=== PATIENT | male | born 1965 | race Caucasian/White ===

== ENCOUNTER 2017-02-20 13:56 | Emergency (ER) | payer MEDICAID ==
[2017-02-20] MEDS ORDERED: ONDANSETRON HCL 4 MG/2 ML VIAL ONE (14:25)
[2017-02-20] MEDS ORDERED: MAG-AL PLUS XS SUSP 30 ML UDC ONE (14:55)
[2017-02-20] MEDS ORDERED: LIDOCAINE VISCOUS 2% 15 ML UDC ONE (14:56)
[2017-02-20 15:07] LABS: EOSINOPHILS 0.1 % (0.0-6.0); WHITE BLOOD COUNT 15.8 X 10^3uL (3.9-10.7)
[2017-02-20 15:18] LABS: A/G RATIO 1.4; ALBUMIN 5.1 g/dL (3.5-5.0); ALKALINE PHOSPHATASE 49 U/L (38-126); ALT 62 U/L (21-72); AST 42 U/L (17-59); BLOOD UREA NITROGEN 18 mg/dL (9-20); CALCIUM 10.5 mg/dL (8.4-10.2); CHLORIDE 105 mmol/L (98-107); CREATININE 1.3 mg/dL (0.7-1.3); EST GLOMERULAR FILTRATION RATE > 60 mL/min; GLUCOSE 158 mg/dL (70-100); MAGNESIUM 1.8 mg/dL (1.6-2.3); POTASSIUM 3.9 mmol/L (3.5-5.1); SODIUM 144 mmol/L (137-145); TOTAL PROTEIN 8.8 g/dL (6.3-8.2)
--- NOTE | 2017-02-20 15:23 | RADIOLOGY REPORT ---
A limited single portable view of the chest, without prior films for comparison , demonstrates the heart, vessels and lungs to be unremarkable. No infiltrate, fluid or pneumothorax is seen. IMPRESSION: Unremarkable limited single portable view of the chest. MTDD
[2017-02-20 15:27] LABS: BASOPHILS 0.1 % (0.0-2.0); HEMATOCRIT 52.2 % (42.0-54.0); HEMOGLOBIN 18.9 g/dL (14.0-18.0); LYMPHOCYTES 10.6 % (20.0-40.0); LYMPHOCYTES# 1.7 X 10^3uL (0.8-3.8); MEAN CELL VOLUME 84.6 fL (80.0-100.0); MEAN CORPUS. HGB CONCENTRATION 36.2 g/dL (32.0-36.0); MEAN CORPUSCULAR HEMOGLOBIN 30.6 pg (29.0-35.0); MONOCYTES 5.6 % (2.0-10.0); MONOCYTES# 0.9 X 10^3uL (0.2-1.0); NEUTROPHILS 83.6 % (54.0-75.0); NEUTROPHILS# 13.2 X 10^3uL (2.6-6.7); PLATELET COUNT 170 X 10^3uL (130-440); RED BLOOD COUNT 6.17 X 10^6uL (4.20-6.10); RED CELL DISTRIBUTION WIDTH 14.4 % (11.5-14.5)
[2017-02-20 15:35] LABS: ETHYL ALCOHOL < 10 mg/dL (<10)
[2017-02-20] MEDS ORDERED: HALOPERIDOL 5 MG/ML VIAL ONE (16:52)
[2017-02-20] MEDS ORDERED: PANTOPRAZOLE 40 MG TABLET PO ONE (16:52)
[2017-02-20] MEDS ORDERED: LORazepam 1 MG TABLET ONE (18:07)
--- NOTE | 2017-02-20 20:04 | ER NURSING DOCUMENTATION ---
Nurse's Notes [facility] Name:Kalpesh Burr Age:51 yrs Sex:Male :1965 Arrival Date:02/20/2017 Time:13:56 Bed4 Private MD: Diagnosis:Abdominal Pain, Epigastric;Alcohol Abuse;Alcohol Gastritis, w/o Hemorrhage;Dehydration Presentation: 02/20 14:01 Acuity: TAM 3 lp 14:06 Presenting complaint: Patient states: I've got alcohol poisoning!!" Drank yesterday, rs large amt of vodka, states he is an alcoholic, c/o n/v and dry heaves. Also has a EMERY, dizziness. Has not taken any meds. Hx of detox and treatment program. Transition of care: Home. 14:06 Method Of Arrival: Private Vehicle rs 17:49 Notified ED Physician of Pt now states he started drinking 10 to 12 dys ago, and that rs he drank more each day, yesterday being the most. he drank until early in the morning. States he still feels "horrible". Nausea cont. Triage Assessment: 14:10 General: Appears distressed, uncomfortable, well developed, well nourished, well rs groomed, Behavior is agitated, cooperative, restless, moaning and groaning, tossing from side to side.. Smells of alcohol. Pain: Complains of pain in States entire abdomen hurts. "Froom vomiting and dry heaving." Pain currently is 9 out of 10 on a pain scale. Quality of pain is described as burning, aching. Neuro: No deficits noted. Level of Consciousness is awake, alert, Oriented to person, place, time, event. Cardiovascular: No deficits noted. Capillary refill. Respiratory: No deficits noted. Respiratory effort is even, unlabored, Respiratory pattern is regular, symmetrical, Breath sounds are clear Denies cough, shortness of breath. GI: Abdomen is flat, non- distended Dry heaves Bowel sounds present X 4 quads. Abd is soft and non tender. Derm: No deficits noted. Historical: - Allergies: No known drug Allergies; - Home Meds: 1. None - PMHx: ALCOHOLISM; Abdominal Pain, Epigastric (February 20, 2017); Alcohol Abuse (February 20, 2017); Alcohol Gastritis, w/o Hemorrhage (February 20, 2017); Dehydration (February 20, 2017); Vomiting - Dehydration (May 04, 2016); Alcohol (ETOH) Withdrawal(May 04, 2016); Pancreatitis, Acute (February 04, 2016); Vomiting - Dehydration (February 04, 2016); Hematemesis (February 04, 2016); Alcohol Abuse (February 04, 2016); - PSHx: ankle; - Tetanus: < 10 years. - Ebola Screening: : Patient negative for fever greater than or equal to 101.5 degrees Fahrenheit, and additional compatible Ebola Virus Disease symptoms. Patient denies exposure to infectious person. Patient denies travel to an Ebola-affected area in the 21 days before illness onset. No symptoms or risks identified at this time. . - Immunization history: Unable to Obtain. - Social history: Smoking status: Patient states was never smoker of tobacco. Patient uses alcohol on a daily basis. Screenin:36 Infectious Disease Risk None. Abuse screen: Denies threats or abuse. Nutritional rs screening: No deficits noted. Suicide Risk Assessment: Unable to obtain due to. Assessment: 14:36 See Triage Assessment done by same RN. rs 15:24 Reassessment: Patient states feeling better. Patient states symptoms have improved. rs Patient appears in no apparent distress at this time. pt has difficulty describing pain vs nausea. . Vital Signs: 14:04 BP 148 / 80; Pulse 90; Resp 28; Temp 98.5; Pulse Ox 95% on R/A; Weight 79.38 kg; Height rs 6 ft. 0 in. (182.88 cm); Pain 9/10; 14:14 BP 165 / 93; Pulse 82; Resp 24; Pulse Ox 94% on R/A; Pain 9/10; rs 14:30 BP 166 / 90; Pulse 79; Resp 24; Pulse Ox 100% on R/A; Pain 8/10; rs 14:45 BP 141 / 57; Pulse 56; Resp 20; Pulse Ox 100% ; Pain 7/10; rs 15:00 BP 150 / 67; Pulse 80; Resp 20; Pulse Ox 94% on R/A; Pain 6/10; rs 16:00 BP 159 / 79; Pulse 83; Resp 20; Pulse Ox 95% on R/A; Pain 4/10; rs 17:06 BP 141 / 75; Pulse 78; Resp 20; Pulse Ox 95% on R/A; Pain 5/10; rs 18:15 BP 152 / 74; Pulse 82; Resp 20; Pulse Ox 94% on R/A; Pain 5/10; rs 19:35 BP 165 / 95; Pulse 71; Resp 18; Pulse Ox 94% on R/A; Pain 1/10; rs 20:00 BP 141 / 72; Pulse 74; Resp 18; Pulse Ox 92% on R/A; Pain 0/10; rs 14:04 Body Mass Index 23.73 (79.38 kg, 182.88 cm) rs ED Course: 13:59 Patient arrived in ED. cj 14:01 Triage completed. lp 14:06 Sunita Yoon, RN is Primary Nurse. rs 14:15 Scott Bess MD is Attending Physician. tl1 14:15 Notified ED Physician of patient's arrival and chief complaint. Dr. Bess notified. Arm rs band placed on Bed in low position Call Light in Reach HOB Elevated Side rails up x1 Emesis basin given. Family accompanied patient. 14:20 Inserted peripheral IV: 20 gauge in left antecubital area and blood collected. Oxygen rs Oxygen administration via nasal cannula @ 2L/min. 14:37 Valuables Remains with patient. Pulse ox on. NIBP on. Door closed. Noise minimized. rs Visitors limited. Lights dimmed. Verbal reassurance given. Warm blanket given. Diet: Patient is NPO. 15:29 Resting quietly. rs 16:10 Discontinued IV intact, bleeding controlled, pressure dressing applied, No rs redness/swelling at site. 18:22 Appears to be sleeping. Sound asleep. Resp reg and non-labored. [place], warm and dry. rs Person that was here with him was not related. She states she is a friend, and left him $20 for a taxi and took his billfold for safe keeping. She requests that we call a taxi when he is ready to go home. 19:41 Awaiting transportation. rs Administered Medications: Completed: NS 0.9% 2000 ml IV at bolus once 14:25 Drug: NS 0.9% 2000 ml; Volume: 1000 ml; Route: IV; Rate: bolus; Site: left antecubital; rs Delivery: [place] [facility]; 15:53 Follow up: IV Status: Completed infusion; IV Intake: 2000ml rs 14:30 Drug: Zofran 8 mg; Route: IVP; Rate: 2 mg/min; Infused Over: 4 mins; Site: left rs antecubital; 15:23 Follow up: Response: Nausea unchanged rs 15:00 Drug: GI Cocktail w/o Donnatol 45 ml - (Maalox Suspension 30 ml, Lidocaine Liquid 2 % rs 15 ml); Route: PO; 15:54 Follow up: Response: Pain is decreased rs 15:00 Drug: Phenergan 12.5 mg; {Note: Added to remaining 100 ml of IVF.} Route: IVP; Rate: 1 rs mg/min; Infused Over: 12 mins; Site: left antecubital; 15:24 Follow up: Response: Nausea is decreased rs 16:45 CANCELLED (Physician Discretion): Pantoprazole 80 mg IVPB once rs 16:49 CANCELLED (Physician Discretion): Haldol 2.5 mg IVP once rs 16:50 Drug: haldol 5 mg im 5 mg; Route: IM; Site: right gluteus; rs 17:36 Follow up: Response: No adverse reaction; No change in condition rs 16:50 Drug: Pantoprazole 40 mg; Route: PO; rs 17:37 Follow up: Response: No adverse reaction; No change in condition rs 17:28 Drug: Phenergan 12.5 mg; Route: PO; rs 17:52 Follow up: Response: No adverse reaction; No change in condition rs 17:56 Drug: Ativan 2 mg; Route: PO; rs 18:27 Follow up: Response: No adverse reaction; Marked relief of symptoms rs Intake: 15:53 IV: 2000ml; Total: 2000ml. rs Outcome: 16:07 Discharge ordered by . tl1 16:10 Discharged to home via wheelchair. rs 16:10 Condition: improved 16:10 Discharge instructions given to patient, family, Instructed on discharge instructions, follow up and referral plans. medication usage, Demonstrated understanding of instructions, medications, Prescriptions given X 2. 16:38 Discharge Assessment: Patient awake and alert. Oriented to person, place and time. rs event, Patient verbalized understanding of disposition instructions. Patient has no functional deficits. Just prior to leaving the ER pt began having nausea again. MD aware. 16:38 IV D/Amauri 16:38 IV D/Amauri 20:01 Discharged to home ambulatory. rs 20:01 Condition: improved 20:01 Discharge instructions given to patient, Instructed on discharge instructions, follow up and referral plans. medication usage, Demonstrated understanding of instructions, medications, Prescriptions given X 2. 20:03 Patient left the ED. rs Signatures: Sunita Yoon RN RN Sravanthi Wayne RN RN lp Leigh, Tom, MD MD tl1 Radha Dunaway
--- NOTE | 2017-02-20 20:04 | ER PHYSICIAN DOCUMENTATION ---
Physician Documentation [facility] Name:Kalpesh Burr Age:51 yrs Sex:Male :1965 Arrival Date:02/20/2017 Time:13:56 Bed4 Private MD: Scott Lopez Disposition: 02/22 07:34 Chart complete. tl1 Disposition: 02/20/17 16:07 Discharged to Home/Self Care. Impression: Abdominal Pain, Epigastric, Alcohol Abuse, Alcohol Gastritis, w/o Hemorrhage, Dehydration. - Condition is Good. - Discharge Instructions: ABDOMINAL PAIN, Unkown Cause, (Male), DEHYDRATION (6y-Adult). - Prescriptions for Prilosec 20 mg Oral Capsule - take 1 capsule by ORAL route once daily; 10 capsule. Zofran 4 mg Oral Tablet - take 1-2 tablet by ORAL route every 4-6 hours As needed; 10 tablet. - Medical Reconciliation form form. - Follow up: Private Physician; When: 2 - 3 days; Reason: Recheck today's complaints, Continuance of care. - Problem is new. - Symptoms have improved. HPI: 02/20 14:00 This 51 yrs old Male presents to ER via Private Vehicle with complaints of tl1 ETOH Abuse. 14:00 He has a long h/o EtOH abuse, but has been sober for 9 months until about 10 days ago tl1 when he started drinking progressively more vodka. Last night was the worst; he drank a fifth of vodka and is now feeling terrible, with diffuse abdominal epigastric aching pain, nausea, repeated vomiting, h/a, malaise and fatigue. He denies tremulousness. No f/c/s. No melena, hematochezia or hematemesis.. Historical: - Allergies: No known drug Allergies; - Home Meds: 1. None - PMHx: ALCOHOLISM; Abdominal Pain, Epigastric (February 20, 2017); Alcohol Abuse (February 20, 2017); Alcohol Gastritis, w/o Hemorrhage (February 20, 2017); Dehydration (February 20, 2017); Vomiting - Dehydration (May 04, 2016); Alcohol (ETOH) Withdrawal(May 04, 2016); Pancreatitis, Acute (February 04, 2016); Vomiting - Dehydration (February 04, 2016); Hematemesis (February 04, 2016); Alcohol Abuse (February 04, 2016); - PSHx: ankle; - Tetanus: < 10 years. - Ebola Screening: : Patient negative for fever greater than or equal to 101.5 degrees Fahrenheit, and additional compatible Ebola Virus Disease symptoms. Patient denies exposure to infectious person. Patient denies travel to an Ebola-affected area in the 21 days before illness onset. No symptoms or risks identified at this time. . - Immunization history: Unable to Obtain. - Social history: Smoking status: Patient states was never smoker of tobacco. Patient uses alcohol on a daily basis. ROS: 14:00 Psych: Negative for auditory hallucinations, visual hallucinations, suicidal ideation. tl1 14:00 All other systems are negative. Exam: 14:00 Head/Face: Normocephalic, atraumatic. tl1 Eyes: Pupils equal round and reactive to light, extra-ocular motions intact. Lids and lashes normal. Conjunctiva and sclera are non-icteric and not injected. Cornea within normal limits. Periorbital areas with no swelling, redness, or edema. ENT: Nares patent. No nasal discharge, no septal abnormalities noted. Tympanic membranes are normal and external auditory canals are clear. Oropharynx with no redness, swelling, or masses, exudates, or evidence of obstruction, uvula midline. Mucous membranes moist. Cardiovascular: Regular rate and rhythm with a normal S1 and S2. No gallops, murmurs, or rubs. Normal PMI, no JVD. No pulse deficits. 14:00 Respiratory: Lungs have equal breath sounds bilaterally, clear to auscultation and tl1 percussion. No rales, rhonchi or wheezes noted. No increased work of breathing, no retractions or nasal flaring. 14:00 Constitutional: The patient appears alert, awake, well developed, well hydrated, well groomed, well nourished, anxious, in obvious distress, in obvious pain, smells of alcohol, restless, uncomfortable. 14:00 Abdomen/GI: Inspection: abdomen appears normal, Bowel sounds: normal, Palpation: soft, moderate abdominal tenderness, in the epigastric area, Liver: tenderness, that is mild. 14:00 : CVA tenderness, is absent. 14:00 Musculoskeletal/extremity: Exam is negative for acute changes. 14:00 Skin: Exam negative for acute changes. 14:00 Neuro: Exam negative for acute changes. 14:00 Psych: Behavior/mood is pleasant, cooperative, depressed, Affect is animated, Oriented to person, place, time, Patient has no thoughts/intents to harm self or others. Judgement / Insight is normal. Memory is normal. Delusions/hallucinations are not present. Vital Signs: 14:04 BP 148 / 80; Pulse 90; Resp 28; Temp 98.5; Pulse Ox 95% on R/A; Weight 79.38 kg; Height rs 6 ft. 0 in. (182.88 cm); Pain 9/10; 14:14 BP 165 / 93; Pulse 82; Resp 24; Pulse Ox 94% on R/A; Pain 9/10; rs 14:30 BP 166 / 90; Pulse 79; Resp 24; Pulse Ox 100% on R/A; Pain 8/10; rs 14:45 BP 141 / 57; Pulse 56; Resp 20; Pulse Ox 100% ; Pain 7/10; rs 15:00 BP 150 / 67; Pulse 80; Resp 20; Pulse Ox 94% on R/A; Pain 6/10; rs 16:00 BP 159 / 79; Pulse 83; Resp 20; Pulse Ox 95% on R/A; Pain 4/10; rs 17:06 BP 141 / 75; Pulse 78; Resp 20; Pulse Ox 95% on R/A; Pain 5/10; rs 18:15 BP 152 / 74; Pulse 82; Resp 20; Pulse Ox 94% on R/A; Pain 5/10; rs 19:35 BP 165 / 95; Pulse 71; Resp 18; Pulse Ox 94% on R/A; Pain 1/10; rs 20:00 BP 141 / 72; Pulse 74; Resp 18; Pulse Ox 92% on R/A; Pain 0/10; rs 14:04 Body Mass Index 23.73 (79.38 kg, 182.88 cm) rs MDM: 14:12 Patient medically screened. tl1 15:30 Differential diagnosis: drug withdrawal. alcohol withdrawal, alcoholic gastritis, tl1 hepatitis, biliary disease, PUD. Data reviewed: vital signs, nurses notes, old medical records, lab test result(s), CBC, electrolytes, hepatic panel, radiologic studies, and as a result, I will discharge patient. Test interpretation: by ED physician or midlevel provider: plain radiologic studies. Counseling: I had a detailed discussion with the patient and/or guardian regarding: the historical points, exam findings, and any diagnostic results supporting the discharge/admit diagnosis, lab results, radiology results, the need for outpatient follow up, with the patient's primary care provider, to return to the emergency department if symptoms worsen or persist or if there are any questions or concerns that arise at home. Response to treatment: the patient's symptoms have markedly improved after treatment, and as a result, I will discharge patient. ED course: He did have persistent nausea, and abdominal discomfort along with h/a and malaise, but did feel much better after IVNS, antiemetics, ativan, and was eager to go home. He does not seem to be having alcohol withdrawal now, though it is difficult to be certain. I encouraged him to avoid EtOH in the future and to get back with AA or some kind of support group and to f/u with his PCP, Radha Sifuentes.. 02/20 15:27 Order name: DDIMER; Complete Time: 16:05 SD 02/20 15:35 Interpretation: Abnormal: DDIMER 346. tl1 02/20 15:35 Order name: COMPREHENSIVE METABOLIC PANEL; Complete Time: 16:05 02/20 Interpretation: SODIUM 144; POTASSIUM 3.9; CHLORIDE 105; CARBON DIOXIDE 21; GLUCOSE tl1 158; BLOOD UREA NITROGEN 18; CREATININE 1.3; BILIRUBIN, TOTAL 2.0; EST GLOMERULAR FILTRATION RATE > 60; CALCIUM 10.5; ALBUMIN 5.1; BILIRUBIN, TOTAL 2.0; TOTAL PROTEIN 8.8. 02/20 15:35 Order name: MAGNESIUM; Complete Time: 16:05 SD 02/20 16:04 Interpretation: Normal: MAGNESIUM 1.8. tl1 02/20 15:35 Order name: BNP,NT-PRO; Complete Time: 16:05 SD 02/20 16:04 Interpretation: Normal: BNP,NT-PRO 64. tl02/20 15:35 Order name: ETHYL ALCOHOL; Complete Time: 16:05 SD 02/20 16:04 Interpretation: Normal: ETHYL ALCOHOL < 10. 02/20 15:40 Order name: CBC AUTO DIF, MDIF/RMOR IF IND; Complete Time: 16:05 SD 02/20 16:04 Interpretation: WHITE BLOOD COUNT 15.8; HEMOGLOBIN 18.9; HEMATOCRIT 52.2; PLATELET tl1 COUNT 170. 05/31 15:32 Order name: CHEST; SINGLE VIEW 60034; Complete Time: 15:37 EDMS 0602 07:35 Interpretation: NAD. See radiologist report. tl1 Dispensed Medications: Completed: NS 0.9% 2000 ml IV at bolus once 14:25 Drug: NS 0.9% 2000 ml; Volume: 1000 ml; Route: IV; Rate: bolus; Site: left antecubital; rs Delivery: [place] Tub[place]; 15:53 Follow up: IV Status: Completed infusion; IV Intake: 2000ml rs 14:30 Drug: Zofran 8 mg; Route: IVP; Rate: 2 mg/min; Infused Over: 4 mins; Site: left rs antecubital; 15:23 Follow up: Response: Nausea unchanged rs 15:00 Drug: GI Cocktail w/o Donnatol 45 ml - (Maalox Suspension 30 ml, Lidocaine Liquid 2 % rs 15 ml); Route: PO; 15:54 Follow up: Response: Pain is decreased rs 15:00 Drug: Phenergan 12.5 mg; {Note: Added to remaining 100 ml of IVF.} Route: IVP; Rate: 1 rs mg/min; Infused Over: 12 mins; Site: left antecubital; 15:24 Follow up: Response: Nausea is decreased rs 16:45 CANCELLED (Physician Discretion): Pantoprazole 80 mg IVPB once rs 16:49 CANCELLED (Physician Discretion): Haldol 2.5 mg IVP once rs 16:50 Drug: haldol 5 mg im 5 mg; Route: IM; Site: right gluteus; rs 17:36 Follow up: Response: No adverse reaction; No change in condition rs 16:50 Drug: Pantoprazole 40 mg; Route: PO; rs 17:37 Follow up: Response: No adverse reaction; No change in condition rs 17:28 Drug: Phenergan 12.5 mg; Route: PO; rs 17:52 Follow up: Response: No adverse reaction; No change in condition rs 17:56 Drug: Ativan 2 mg; Route: PO; rs 18:27 Follow up: Response: No adverse reaction; Marked relief of symptoms rs Signatures: Sunita Yoon RN RN rs Leigh, Tom, MD MD tl1
== END 2017-02-20 20:04 | disposition home or self-care (01) ==
LOC: ER 13:56
DX: K29.20 Alcoholic gastritis without bleeding (principal); F10.20 Alcohol dependence, uncomplicated; E86.0 Dehydration; R10.13 Epigastric pain; R11.2 Nausea with vomiting, unspecified; R51 Headache; R53.81 Other malaise
CPT/HCPCS: 71010; 80053; 80320; 83735; 83880; 85025; 85379; 96361; 96372; 96374; 96375; 99284; J1630; J2405; J2550; Q0169

== ENCOUNTER 2017-02-24 15:38 | Emergency (ER) | payer MEDICAID ==
[2017-02-24] MEDS ORDERED: DIPHENHYDRAMINE 50 MG/ML VIAL ONE (16:34)
[2017-02-24] MEDS ORDERED: HALOPERIDOL 5 MG/ML VIAL ONE (16:35)
[2017-02-24] MEDS ORDERED: LORazepam 2 MG/ML INJ ONE (16:36)
--- NOTE | 2017-02-24 18:33 | ER PHYSICIAN DOCUMENTATION ---
Physician Documentation [facility] Name:Kalpesh Burr Age:51 yrs Sex:Male :1965 Arrival Date:02/24/2017 Time:15:38 Bed5 Private MD: Scott Lopez Disposition: 02/25 22:28 Chart complete. tl1 Disposition: 02/24/17 16:44 Discharged to Home/Self Care. Impression: Nausea - Vomiting (not ), Abdominal Pain, Epigastric. - Condition is Good. - Discharge Instructions: ABDOMINAL PAIN, Unkown Cause, (Male), NAUSEA VOMITING 6yAdult - VOMITING (6y-Adult). - Prescriptions for Ativan 2 mg Oral - take 1 tablet by ORAL route every 8 hours As needed; 6 tablet. Haloperidol 2 mg Oral Tablet - take 1 tablet by ORAL route every 12 hours; 30 tablet. - Medical Reconciliation form form. - Follow up: [facility]; When: 2 - 3 days; Reason: Recheck today's complaints, Continuance of care. - Problem is new. - Symptoms have improved. HPI: 02/24 17:19 This 51 yrs old Male presents to ER via Walk In with complaints of Abdominal tl1 Pain. 17:20 He was seen here 5 days ago by me for abdominal pain that I thought was most consistent tl1 with alcoholic gastritis. He felt better afterhis ED treatment and was d/c'd to home. Since then he has been sober, but this similar pain persists, mostly in the epigastrium and similar to what he has had on several visits to this ED in the past. He is also anxious and nauseated... Historical: - Allergies: No known drug Allergies; - Home Meds: 1. None - PMHx: ALCOHOLISM; Abdominal Pain, Epigastric (February 20, 2017); - Tetanus: < 10 years. - Ebola Screening: : No symptoms or risks identified at this time. . - Immunization history: Flu Vaccine < 1 year. - Social history: Smoking status: Patient uses tobacco products, current some day smoker. ROS: 17:20 Constitutional: Positive for body aches, fatigue, malaise, poor PO intake, Negative for tl1 chills, fever, poor PO intake, weight loss. 17:20 Abdomen/GI: Positive for abdominal pain, nausea, constipation, Negative for 17:20 Psych: Positive for anxiety, Negative for auditory hallucinations, visual hallucinations, insomnia. 17:20 All other systems are negative. Exam: 17:20 Constitutional: This is a well developed, well nourished patient who is awake, alert, tl1 and in no acute distress. Head/Face: Normocephalic, atraumatic. Eyes: Pupils equal round and reactive to light, extra-ocular motions intact. Lids and lashes normal. Conjunctiva and sclera are non-icteric and not injected. Cornea within normal limits. Periorbital areas with no swelling, redness, or edema. ENT: Nares patent. No nasal discharge, no septal abnormalities noted. Tympanic membranes are normal and external auditory canals are clear. Oropharynx with no redness, swelling, or masses, exudates, or evidence of obstruction, uvula midline. Mucous membranes moist. Neck: Trachea midline, no thyromegaly or masses palpated, and no cervical lymphadenopathy. Supple, full range of motion without nuchal rigidity, or vertebral point tenderness. No Meningismus. Cardiovascular: Regular rate and rhythm with a normal S1 and S2. No gallops, murmurs, or rubs. Normal PMI, no JVD. No pulse deficits. 17:20 Respiratory: Lungs have equal breath sounds bilaterally, clear to auscultation and tl1 percussion. No rales, rhonchi or wheezes noted. No increased work of breathing, no retractions or nasal flaring. 17:20 Abdomen/GI: Inspection: abdomen appears normal, Palpation: soft, moderate abdominal tenderness, in the epigastric area. 17:20 Skin: Exam negative for 17:20 Neuro: Orientation: is normal, Mentation: is normal, Memory: is normal, Cranial nerves: is grossly normal based on the patient's age, Motor: is normal, Sensation: Gait: is steady. Vital Signs: 16:06 BP 137 / 98; Pulse 97; Resp 18; Temp 99.6; Pulse Ox 95% on R/A; Weight 70.31 kg; Height mk4 5 ft. 10 in. (177.80 cm); Pain 5/10; 17:55 Resp 16; Pulse Ox 94% on R/A; Pain 0/10; lc 16:06 Body Mass Index 22.24 (70.31 kg, 177.80 cm) mk4 MDM: 15:55 Patient medically screened. tl1 17:00 Data reviewed: vital signs, nurses notes, old medical records, and as a result, I will tl1 discharge patient. Counseling: I had a detailed discussion with the patient and/or guardian regarding: the historical points, exam findings, and any diagnostic results supporting the discharge/admit diagnosis, the need for outpatient follow up, to return to the emergency department if symptoms worsen or persist or if there are any questions or concerns that arise at home. Medication response: The patient's symptoms have improved. Dispensed Medications: 16:02 Drug: NS 0.9% (20 ml/kg) 1000 ml/hr; Volume: 1000 ml; Route: IV; Rate: bolus; Infused mk4 Over: 45 mins; Site: right antecubital; Delivery: [place] [facility]; 17:54 Follow up: IV Status: Completed infusion; IV Intake: 1000ml lc 16:37 Drug: Haldol 2.5 mg; Route: IVP; Rate: 2 bolus; Infused Over: 2 mins; Site: right mk4 forearm; 17:54 Follow up: Response: Anxiety decreased lc 16:37 Drug: Ativan 1 mg; Route: IVP; Rate: 1 bolus; Infused Over: 1 mins; Site: right mk4 antecubital; 17:54 Follow up: Response: Anxiety decreased lc 16:38 Drug: Benadryl 25 mg; Route: IVP; Rate: 25 bolus; Infused Over: 2 mins; Site: right mk4 antecubital; 17:55 Follow up: Response: No adverse reaction lc Signatures: Ashley Mullen 4 Scott Bess MD MD tl1 Alta Larson RN lc
--- NOTE | 2017-02-24 18:33 | ER NURSING DOCUMENTATION ---
Nurse's Notes [facility] Name:Kalpesh Burr Age:51 yrs Sex:Male :1965 Arrival Date:02/24/2017 Time:15:38 Bed5 Private MD: Diagnosis:Nausea - Vomiting (not );Abdominal Pain, Epigastric Presentation: 02/24 15:45 Presenting complaint: Patient states: Seen in ED for alcohol withdrawal 5 days ago. Now 4 generalized abdominal pain. Transition of care: Home. 15:45 Method Of Arrival: Walk In [facility] 15:45 Acuity: TAM 3 [facility] Triage Assessment: 15:48 General: Appears distressed, Behavior is. Pain: Complains of pain in right upper mk4 quadrant and left upper quadrant. EENT: No deficits noted. Neuro: No deficits noted. Cardiovascular: Rhythm is regular Chest pain is denied. Respiratory: Airway is patent Breath sounds are clear. GI: Abdomen is non- distended. :. Derm: No deficits noted. Musculoskeletal: No deficits noted. Historical: - Allergies: No known drug Allergies; - Home Meds: 1. None - PMHx: ALCOHOLISM; Abdominal Pain, Epigastric (February 20, 2017); - Tetanus: < 10 years. - Ebola Screening: : No symptoms or risks identified at this time. . - Immunization history: Flu Vaccine < 1 year. - Social history: Smoking status: Patient uses tobacco products, current some day smoker. Screenin:04 Infectious Disease Risk None. Abuse screen: Denies threats or abuse. Nutritional [facility] screening: No deficits noted. Assessment: 16:04 See Triage Assessment done by same RN. [facility] 16:04 GI: Bowel sounds present X 4 quads. Abd is soft and non tender Abd is non tender. 4 Vital Signs: 16:06 BP 137 / 98; Pulse 97; Resp 18; Temp 99.6; Pulse Ox 95% on R/A; Weight 70.31 kg; Height 4 5 ft. 10 in. (177.80 cm); Pain 5/10; 17:55 Resp 16; Pulse Ox 94% on R/A; Pain 0/10; lc 16:06 Body Mass Index 22.24 (70.31 kg, 177.80 cm) [facility] ED Course: 15:40 Patient arrived in ED. em3 15:45 Ashley Mullen is Primary Nurse. mk4 15:55 Scott Bess MD is Attending Physician. tl1 16:[address] Cerda notified. Allergy Band Placed Arm band placed on Bed in mk4 low position Call Light in Reach Gowned Side rails up x2. Labs ordered per protocol. Drawn by ED staff. 16:04 Valuables Remains with patient. Pulse Ox - RN Monitoring Only NIBP On - RN Monitoring mk4 Only. Door closed. Noise minimized. Lights dimmed. 16:05 Inserted peripheral IV: 20 gauge in left forearm. mk4 16:43 [facility] is Referral Physician. tl1 18:31 Triage completed. mk4 Administered Medications: 16:02 Drug: NS 0.9% (20 ml/kg) 1000 ml/hr; Volume: 1000 ml; Route: IV; Rate: bolus; Infused mk4 Over: 45 mins; Site: right antecubital; Delivery: [place]; 17:54 Follow up: IV Status: Completed infusion; IV Intake: 1000ml lc 16:37 Drug: Haldol 2.5 mg; Route: IVP; Rate: 2 bolus; Infused Over: 2 mins; Site: right 4 forearm; 17:54 Follow up: Response: Anxiety decreased lc 16:37 Drug: Ativan 1 mg; Route: IVP; Rate: 1 bolus; Infused Over: 1 mins; Site: right 4 antecubital; 17:54 Follow up: Response: Anxiety decreased lc 16:38 Drug: Benadryl 25 mg; Route: IVP; Rate: 25 bolus; Infused Over: 2 mins; Site: right 4 antecubital; 17:55 Follow up: Response: No adverse reaction lc Intake: 17:54 IV: 1000ml; Total: 1000ml. lc Outcome: 16:44 Discharge ordered by . tl1 17:55 Discharged to home ambulatory. lc 17:55 Condition: stable 17:55 Discharge Assessment: Patient awake, alert and oriented x 3. No cognitive and/or functional deficits noted. Patient verbalized understanding of disposition instructions. 17:55 Discharge instructions given to patient, Instructed on discharge instructions, follow up and referral plans. medication usage, rx's [facility] Demonstrated understanding of instructions, medications, Prescriptions given X 2. 17:55 IV D/Ama[place] 18:32 Patient left the ED. mk4 Signatures: Alta Larson RN RN Stanton Bennett em3 Ashley Mullen mk4 Scott Bess MD MD tl1
== END 2017-02-24 18:33 | disposition home or self-care (01) ==
LOC: ER 15:38
DX: R10.13 Epigastric pain (principal); R11.2 Nausea with vomiting, unspecified; M79.1 Myalgia; R53.83 Other fatigue; R53.81 Other malaise; F10.21 Alcohol dependence, in remission
CPT/HCPCS: 96361; 96374; 96375; 99284; J1200; J1630; J2060